=== PATIENT | female | born 1995 | race African-American/Black ===

== ENCOUNTER 2018-02-08 18:37 | Emergency (ER) | payer OTHER ==
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
[2018-02-08 22:05] LABS: ABSOLUTE EOSINOPHILS # (AUTO) 0.2 10^3/uL (0.0-0.6); ABSOLUTE LYMPHOCYTES (AUTO) 1.8 10^3/uL (0.5-4.7); ABSOLUTE MONOCYTES (AUTO) 0.4 10^3/uL (0.1-1.4); ABSOLUTE NEUT (AUTO) 7.9 10^3/uL (1.7-8.2); BASOPHILS % (AUTO) 0.1 % (0-2); EOSINOPHILS % (AUTO) 1.8 % (0-6); HEMATOCRIT 35.6 % (36.0-47.0); LYMPHOCYTES % (AUTO) 17.6 % (13-45); MEAN CORPUSCULAR HEMOGLOBIN 29.6 pg (27.0-33.4); MEAN CORPUSCULAR HGB CONC 33.9 g/dL (32.0-36.0); MEAN CORPUSCULAR VOLUME 88 fl (80-97); MONOCYTES % (AUTO) 3.5 % (3-13); PLATELET COUNT 226 10^3/uL (150-450); RED BLOOD COUNT 4.06 10^6/uL (3.72-5.28); RED CELL DISTRIBUTION WIDTH 15.3 % (11.5-14.0); TOTAL CELLS COUNTED % (AUTO) 100 %; WHITE BLOOD COUNT 10.3 10^3/uL (4.0-10.5)
[2018-02-08 22:29] LABS: ALANINE AMINOTRANSFERASE 13 U/L (9-52); ALBUMIN 4.3 g/dL (3.5-5.0); ALKALINE PHOSPHATASE 69 U/L (38-126); ANION GAP 12 (5-19); ASPARTATE AMINO TRANSFERASE 26 U/L (14-36); BILIRUBIN,DIRECT 0.3 mg/dL (0.0-0.4); BILIRUBIN,TOTAL 0.5 mg/dL (0.2-1.3); BLOOD UREA NITROGEN 10 mg/dL (7-20); CALCIUM 9.3 mg/dL (8.4-10.2); CARBON DIOXIDE 25 mmol/L (22-30); CHLORIDE 108 mmol/L (98-107); GLUCOSE 81 mg/dL (75-110); POTASSIUM 3.8 mmol/L (3.6-5.0); SODIUM 144.8 mmol/L (137-145)
[2018-02-08 22:32] LABS: BACTERIA (WET MOUNT) 3+ BACTERIA SEEN; RBCS (WET MOUNT) 3+ RBCS SEEN; T.VAGINALIS (WET MOUNT) NO TRICHOMONAS SEEN; WBCS (WET MOUNT) 1+ WBCS SEEN; YEAST (WET MOUNT) NO YEAST SEEN
[2018-02-08] MEDS ORDERED: CEFTRIAXONE INJ 250 MG VIAL IM ONE (23:04)
[2018-02-08] MEDS ORDERED: LIDOCAINE 1% INJ-PF (10 MG/ML) 30 ML SDV INFIL ONE (23:04)
[2018-02-08] MEDS ORDERED: AZITHROMYCIN 250 MG TABLET PO ONE (23:05)
[2018-02-08] MEDS ORDERED: ONDANSETRON 4 MG TAB.RAPDIS PO ONE (23:07)
[2018-02-08] MEDS ORDERED: METRONIDAZOLE 500 MG TABLET PO ONE (23:07)
[2018-02-09 00:24] VITALS: BP 116/72
[2018-02-09 00:26] LABS: CHLAM PCR NOT DETECTED (NOT DETECT); GON PCR NOT DETECTED (NOT DETECT)
[2018-02-10 11:39] LABS: HEPATITIS A AB IGM Negative (Negative); HEPATITIS B CORE AB IGM Negative (Negative); HEPATITS B SURFACE ANTIGEN Negative (Negative)
[2018-02-10 13:13] LABS: HEPATITIS C VIRUS ANTIBODY <0.1 s/co ratio (0.0-0.9)
== END 2018-02-08 23:55 | disposition home or self-care (01) ==
LOC: ER 18:37
DX: T74.21XA Adult sexual abuse, confirmed, initial encounter (principal); S70.362A Insect bite (nonvenomous), left thigh, initial encounter; S70.361A Insect bite (nonvenomous), right thigh, initial encounter; S30.864A Insect bite (nonvenomous) of vagina and vulva, initial encounter; W57.XXXA Bitten or stung by nonvenomous insect and other nonvenomous arthropods, initial encounter; N93.9 Abnormal uterine and vaginal bleeding, unspecified
CPT/HCPCS: 99285; 36415; 87210; 85025; 81025; 86592; 80053; 87491; 87591; 86701; 86702; 80074; S0119; J3490; J0696

== ENCOUNTER 2019-08-06 00:30 | Inpatient (IN) | payer OTHER ==
[2019-08-06] MEDS ORDERED: PENICILLIN G-K 5 MILLION UNIT VIAL ONE ×3 (01:00→10:25)
[2019-08-06] MEDS ORDERED: RINGERS SOLUTION,LACTATED 1,000 ML IV PRN (01:00)
[2019-08-06] MEDS ORDERED: PENICILLIN G POTASSIUM 5,000,000 UNIT in DEXTROSE 5%-WATER 100 ML IV ONE (02:00)
[2019-08-06] MEDS ORDERED: RINGERS SOLUTION,LACTATED 1,000 ML IV ONE (02:00)
[2019-08-06] MEDS ORDERED: OXYTOCIN 10 UNIT/ML VIAL ONE (02:22)
[2019-08-06] MEDS ORDERED: LIDOCAINE 1% INJ-PF (10 MG/ML) 30 ML SDV ONE (02:23)
[2019-08-06] MEDS ORDERED: OXYTOCIN/NORMAL SALINE 20 UNIT/1,000 ML RTUINJ ONE (02:23)
[2019-08-06] MEDS ORDERED: MISOPROSTOL 0.2 MG TABLET ONE (02:23)
[2019-08-06 02:27] LABS: ABSOLUTE EOSINOPHILS # (AUTO) 0.1 10^3/uL (0.0-0.6); ABSOLUTE LYMPHOCYTES (AUTO) 2.2 10^3/uL (0.5-4.7); ABSOLUTE MONOCYTES (AUTO) 0.3 10^3/uL (0.1-1.4); ABSOLUTE NEUT (AUTO) 7.3 10^3/uL (1.7-8.2); BASOPHILS % (AUTO) 0.1 % (0-2); EOSINOPHILS % (AUTO) 0.7 % (0-6); HEMATOCRIT 33.8 % (36.0-47.0); HEMOGLOBIN 11.3 g/dL (12.0-15.5); LYMPHOCYTES % (AUTO) 21.9 % (13-45); MEAN CORPUSCULAR HEMOGLOBIN 26.9 pg (27.0-33.4); MEAN CORPUSCULAR HGB CONC 33.4 g/dL (32.0-36.0); MEAN CORPUSCULAR VOLUME 81 fl (80-97); MONOCYTES % (AUTO) 3.2 % (3-13); PLATELET COUNT 160 10^3/uL (150-450); RED CELL DISTRIBUTION WIDTH 16.8 % (11.5-14.0); SEGMENTED NEUTROPHILS % (AUTO) 74.1 % (42-78); TOTAL CELLS COUNTED % (AUTO) 100 %; WHITE BLOOD COUNT 9.9 10^3/uL (4.0-10.5)
[2019-08-06 02:30] LABS: APPEARANCE,URINE CLOUDY; BILIRUBIN,URINE NEGATIVE (NEGATIVE); GLUCOSE, URINE 50 mg/dL (NEGATIVE); KETONES,URINE NEGATIVE (NEGATIVE); LEUKOCYTE ESTERASE,URINE MODERATE (NEGATIVE); NITRITE,URINE NEGATIVE (NEGATIVE); PROTEIN,URINE 100 mg/dL (NEGATIVE); URINE SPECIFIC GRAVITY 1.005; UROBILINOGEN,URINE NEGATIVE mg/dL (<2.0)
[2019-08-06 02:31] LABS: COLOR,URINE PINK
[2019-08-06 02:50] LABS: URINE AMPHETAMINES SCREEN NEGATIVE; URINE BARBITURATES SCREEN NEGATIVE; URINE BENZODIAZEPINES SCREEN NEGATIVE; URINE COCAINE SCREEN NEGATIVE; URINE MARIJUANA (THC) SCREEN NEGATIVE; URINE METHADONE SCREEN NEGATIVE; URINE PHENCYCLIDINE SCREEN NEGATIVE
[2019-08-06] MEDS ORDERED: OXYTOCIN/NORMAL SALINE 20 UNIT/1,000 ML RTUINJ IV PRN ×2 (05:10→14:17)
[2019-08-06] MEDS: PENICILLIN G POTASSIUM 2,500,000 UNIT in DEXTROSE 5%-WATER 50 ML IV SCH ×4 (05:54→18:21)
[2019-08-06] MEDS ORDERED: NALBUPHINE HCL INJ 10 MG/1 ML AMPULE ONE (07:38)
[2019-08-06] MEDS ORDERED: ONDANSETRON HCL INJ/PF 4 MG/2 ML SDV IV PRN (07:39)
[2019-08-06] MEDS ORDERED: NALBUPHINE HCL INJ 10 MG/1 ML AMPULE INJ ONE (07:39)
[2019-08-06] MEDS ORDERED: ONDANSETRON HCL INJ/PF 4 MG/2 ML SDV ONE (07:48)
[2019-08-06] MEDS ORDERED: METRONIDAZOLE 500 MG/NS RTU 500 MG/100 ML RTUPB IV ONE (09:08)
[2019-08-06] MEDS: METRONIDAZOLE 500 MG/NS RTU 500 MG/100 ML RTUPB IV SCH ×3 (09:20→21:33)
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
[2019-08-06 09:49] LABS: BACTERIA (WET MOUNT) 4+ BACTERIA SEEN; RBCS (WET MOUNT) 4+ RBCS SEEN; T.VAGINALIS (WET MOUNT) NO TRICHOMONAS SEEN; WBCS (WET MOUNT) 1+ WBCS SEEN; YEAST (WET MOUNT) NO YEAST SEEN
[2019-08-06] MEDS ORDERED: EPHEDRINE SULFATE INJ 50 MG/1 ML AMPULE ONE (10:09)
[2019-08-06] MEDS ORDERED: BUPIVACAINE HCL 0.25 % INJ/PF (2.5 MG/1 ML) 30 ML VIAL ONE (10:09)
[2019-08-06] MEDS ORDERED: FENTANYL/BUPIVACAINE/NS/PF 300 MCG/150 ML RTUINJ EPI ONE (10:09)
[2019-08-06] MEDS ORDERED: FENTANYL CITRATE INJ/PF 100 MCG/2 ML AMPUL ONE (10:09)
[2019-08-06] MEDS ORDERED: PHENYLEPHRINE HCL INJ/PF 10 MG/1 ML SDV ONE (10:09)
[2019-08-06] MEDS ORDERED: METRONIDAZOLE 500 MG/NS RTU 500 MG/100 ML RTUPB IV SCH (12:00)
[2019-08-06] MEDS ORDERED: PROMETHAZINE HCL 25 MG SUPP.RECT PR PRN (14:17)
[2019-08-06] MEDS ORDERED: PROMETHAZINE HCL 25 MG TABLET PO PRN (14:17)
[2019-08-06] MEDS ORDERED: ACETAMINOPHEN 325 MG TABLET PO PRN (14:17)
[2019-08-06] MEDS ORDERED: ZOLPIDEM TARTRATE 5 MG TABLET PO PRN (14:17)
[2019-08-06] MEDS ORDERED: DIBUCAINE 1% OINTMENT 28 GM TP PRN (14:17)
[2019-08-06] MEDS ORDERED: NA PHOS,M-B/NA PHOS,DI-BA (ADULT) 133 ML ENEMA PR PRN (14:17)
[2019-08-06] MEDS ORDERED: DIPH/PERTUSS(ACELL)/TETANUS VAC/PF 0.5 ML SYR (>=10YO) IM PRN (14:17)
[2019-08-06] MEDS ORDERED: BENZOCAINE/MENTHOL AEROSOL SPRAY 56 ML TOP PRN (14:17)
[2019-08-06] MEDS ORDERED: DIPHENHYDRAMINE HCL 25 MG CAPSULE PO PRN (14:17)
[2019-08-06] MEDS ORDERED: MEASLES,MUMPS&RUBELLA VACC/PF 0.5 ML VIAL SUBCUT PRN (14:17)
[2019-08-06] MEDS ORDERED: ACETAMINOPHEN WITH CODEINE #3 TABLET PO PRN ×2 (14:17)
[2019-08-06] MEDS ORDERED: GLYCERIN/WITCH HAZEL LEAF 1 EACH MED..WIPE TP PRN (14:17)
[2019-08-06] MEDS ORDERED: PROMETHAZINE HCL INJ 25 MG/1 ML VIAL IV PRN (14:17)
[2019-08-06] MEDS ORDERED: MAGNESIUM HYDROXIDE SUSP 30 ML UDCUP PO PRN (14:17)
[2019-08-06] MEDS ORDERED: PSEUDOEPHEDRINE HCL 30 MG TABLET PO PRN (14:17)
--- NOTE | 2019-08-06 15:59 | Delivery Summary ---
Del Sum A-C Datetime Report Generated by CPN: 08/06/2019 15:58 DELIVERY PERSONNEL DELIVERY PERSONNEL: [id number] Delivery Doctor:: Socorro Wong CNM Nurse Parts Remover Certified:: Socorro Wong CNM Labor and Delivery Nurse:: Lori De Leon RNaccounts receivable processor Nurse:: LEW Berry Nursery Nurse:: Elizabeth Chamorro RN Epic Cupid Analyst/WATER [employer] SE[employer] SYSTEMS SUPERINTENDENT: Bety Ely, ST Epic Cupid Analyst/WATER [employer] SEW[employer] SYSTEMS SUPERINTENDENT: Aniya Mendoza, ST MATERNAL INFORMATION Delivery Anesthesia: Epidural Medications After Delivery: Pitocin Bolus-Please Comment Delivery QBL: 353 Maternal Complications: Premature Rupture of Membranes LABOR SUMMARY EDC: 08/13/2019 00:00 No. Babies in Womb: 1 Attempted: No Labor Anesthesia: Epidural LABOR INFORMATION Reason for Induction: Other Reason for Induction- Other: PROM Onset of Labor: 08/06/2019 23:30 Complete Dilatation: 08/06/2019 13:32 Oxytocin: Augmentation Group B Beta Strep: positive Antibiotics # of Doses: 3 Antibiotics Time of Last Dose: 1130 Name of Antibiotic Given: penicillin/flagyl Steroids Given: None Reason Steroids Not Administered: Not Applicable Other Reason Not Administered: n/a MEMBRANES Membranes Rupture Method: Spontaneous Rupture of Membranes: 08/05/2019 23:30 Length of Rupture (hr): 14.80 Amniotic Fluid Color: Light Meconium Amniotic Fluid Amount: Small Amniotic Fluid Odor: Normal STAGES OF LABOR Stage 1 hr: -9 Stage 1 min: -58 Stage 2 hr: 0 Stage 2 min: 46 Stage 3 hr: 0 Stage 3 min: 5 Total Time in Labor hr: -9 Total Time in Labor min: -7 VAGINAL DELIVERY Episiotomy: None Laceration #1: Perineal Laceration Extension #1: First Degree Other Laceration: l periurethral Laceration Repair: Not Applicable Sponge Count Correct: N/A Sharps Count Correct: N/A CSECTION DELIVERY Primary Indication: N/A Secondary Indication: N/A CSection Incidence: N/A Labor: N/A Elective: N/A CSection Incision: N/A BABY A INFORMATION Delivery Date/Time: 08/06/2019 14:18 Method of Delivery: Vaginal Born in Route : No : N/A Forceps: N/A Vacuum Extraction: N/A Shoulder Dystocia : No PRESENTATION/POSITION BABY A Presentation: Cephalic Cephalic Presentation: Vertex Vertex Position: Left Occipital Anterior Breech Presentation: N/A PLACENTA INFORMATION BABY A Placenta Delivery Time : 08/06/2019 14:23 Placenta Method of Delivery: Spontaneous Placenta Status: Delivered SCORES BABY A Heart Rate 1 min: >100 bpm Resp Effort 1 min: Slow, Irregular Reflex Irritability 1 min: Cough or Sneeze or Pulls Away Muscle Tone 1 min: Active Motion Color 1 min: Blue/Pale Resuscitation Effort 1 min: Tactile Stimulation; PPV/NCPAP SCORE 1 MIN: 7 Heart Rate 5 min: >100 bpm Resp Effort 5 min: Good Cry Reflex Irritability 5 min: Cough or Sneeze or Pulls Away Muscle Tone 5 min: Active Motion Color 5 min: Body [place], Extremities Blue Resuscitation Effort 5 min: Tactile Stimulation SCORE 5 MIN: 9 Resuscitation Effort 10 min: N/A INFORMATION BABY A Gestational Age at Delivery: 39.0 Gestational Status: Full Term- 39- 40.6 Weeks Infant Outcome : Liveborn Infant Condition : Stable Sex: Male IDENTIFICATION BABY A Verification Date/Time: 08/06/2019 15:40 ID Band Number: [id number] Mother's Name Verified: Yes RN Verifying Infant: J Nicolaswell RN and R Chauncey RN WEIGHT/LENGTH BABY A Infant Birthweight (gm): 3730 Weight (lb): 8 Weight (oz): 4 Length (in): 19.50 Infant Length (cm): 49.53 CORD INFORMATION BABY A No. Cord Vessels: 3 Nuchal Cord : Around Neck x1, Loose Cord Blood Taken: Yes-For Storage (Mom's Blood type +) Infant Suction: None ASSESSMENT BABY A Infant Complications: Meconium Physical Findings at Delivery: Molding of the Head Infant Respirations: Tachypnea Skin to Skin: Yes Shingle Carrier/ALS Called : No Infant Care By: C Pedro Pablo RN Transferred To: Remains with Mother BABY B INFORMATION : N/A SIGNATURES : I was personally available for consultation and serving as supervising physician for the MLP.
[2019-08-06] MEDS: FERROUS SULFATE 325 MG TABLET PO SCH (18:13)
[2019-08-06] MEDS: DOCUSATE SODIUM 100 MG CAPSULE PO SCH (18:13)
[2019-08-06] MEDS: IBUPROFEN 800 MG TABLET PO SCH (21:38)
[2019-08-06] MEDS: FAMOTIDINE 20 MG TABLET PO SCH (21:38)
[2019-08-07] MEDS: PENICILLIN G POTASSIUM 2,500,000 UNIT in DEXTROSE 5%-WATER 50 ML IV SCH ×2 (06:04→06:05)
[2019-08-07] MEDS: METRONIDAZOLE 500 MG/NS RTU 500 MG/100 ML RTUPB IV SCH ×2 (06:05→09:00)
[2019-08-07] MEDS: IBUPROFEN 800 MG TABLET PO SCH ×3 (06:06→22:19)
[2019-08-07 07:42] LABS: HEMATOCRIT 23.9 % (36.0-47.0); MEAN CORPUSCULAR HEMOGLOBIN 27.5 pg (27.0-33.4); MEAN CORPUSCULAR HGB CONC 34.5 g/dL (32.0-36.0); MEAN CORPUSCULAR VOLUME 80 fl (80-97); PLATELET COUNT 129 10^3/uL (150-450); RED CELL DISTRIBUTION WIDTH 17.1 % (11.5-14.0); WHITE BLOOD COUNT 9.8 10^3/uL (4.0-10.5)
[2019-08-07 07:48] LABS: HEMOGLOBIN 8.2 g/dL (12.0-15.5)
[2019-08-07] MEDS: FERROUS SULFATE 325 MG TABLET PO SCH ×2 (11:11→17:57)
[2019-08-07] MEDS: FAMOTIDINE 20 MG TABLET PO SCH ×2 (11:11→22:19)
[2019-08-07] MEDS: DOCUSATE SODIUM 100 MG CAPSULE PO SCH ×2 (11:11→17:57)
[2019-08-07] MEDS: SENNOSIDES/DOCUSATE 8.6-50 MG 1 EACH TABLET PO SCH (11:11)
[2019-08-07] MEDS: PRENATAL VITAMIN W DHA CAPSULE PO SCH (11:11)
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
[2019-08-08] MEDS: IBUPROFEN 800 MG TABLET PO SCH (05:48)
[2019-08-08 07:58] VITALS: BP 115/73
[2019-08-08] MEDS: FERROUS SULFATE 325 MG TABLET PO SCH (09:32)
[2019-08-08] MEDS: PRENATAL VITAMIN W DHA CAPSULE PO SCH (09:32)
[2019-08-08] MEDS: SENNOSIDES/DOCUSATE 8.6-50 MG 1 EACH TABLET PO SCH (09:32)
[2019-08-08] MEDS: DOCUSATE SODIUM 100 MG CAPSULE PO SCH (09:32)
[2019-08-08] MEDS: FAMOTIDINE 20 MG TABLET PO SCH (11:55)
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
== END 2019-08-08 16:05 | disposition home or self-care (01) | DRG 806 ==
LOC: ER 00:30 → LR 00:57 → ER 01:00 → LR 01:02 → 2S 16:51
PROVIDERS: ADMIT Student in an Organized Health Care Education/Training Program; ATTEND Student in an Organized Health Care Education/Training Program
PROC: 10E0XZZ Delivery of Products of Conception, External Approach (ICD-10-PCS; principal; 2019-08-06)
PROC: 0HQ9XZZ Repair Perineum Skin, External Approach (ICD-10-PCS; 2019-08-06)
DX: O42.02 Full-term premature rupture of membranes, onset of labor within 24 hours of rupture (principal); O72.1 Other immediate postpartum hemorrhage; Z37.0 Single live birth; O99.824 Streptococcus B carrier state complicating childbirth; O77.0 Labor and delivery complicated by meconium in amniotic fluid; O69.81X0 Labor and delivery complicated by cord around neck, without compression, not applicable or unspecified; O70.0 First degree perineal laceration during delivery; Z3A.39 39 weeks gestation of pregnancy
CPT/HCPCS: 36415; 80307; 81005; 85025; 85027; 86592; 86850; 86900; 86901; 87210; J2300; J2370; J2405; J2540; J2590; J3010; J3490; J7060